=== PATIENT | male | born 1980 | race Caucasian/White ===

== ENCOUNTER → 2017-07-05 | Outpatient (CLI) | payer BC | END | disposition home or self-care (01) | LOC: CVU 07:11 | PROVIDERS: ATTEND Genetic Counselor, MS | DX: R07.89 Other chest pain (principal); I71.4 Abdominal aortic aneurysm, without rupture; I10 Essential (primary) hypertension; M54.9 Dorsalgia, unspecified; R05 Cough | CPT/HCPCS: 93978 ==

== ENCOUNTER 2018-02-06 20:57 | Emergency (ER) | payer OTHER ==
[~2018-02-06] VITALS: Ht 175.3 cm; Wt 140.0 kg
[2018-02-06 23:03] LABS: BASOPHILS # (AUTO) 0.02 x10^3/uL (0-0.1); BASOPHILS % (AUTO) 0 % (0-1); EOSINOPHILS # (AUTO) 0.15 x10^3/uL (0-0.4); EOSINOPHILS % (AUTO) 3 % (1-7); LYMPHOCYTES # (AUTO) 1.66 x10^3/uL (1-3.4); LYMPHOCYTES % (AUTO) 29 % (22-44); MD NO; MEAN CORPUSCULAR HGB CONC 33.6 g/dL (33.2-36.2); MEAN CORPUSCULAR VOLUME 89.3 fL (81-97); MEAN PLATELET VOLUME 7.1 fL (7.4-10.4); MONOCYTES # (AUTO) 0.49 x10^3/uL (0.2-0.8); MONOCYTES % (AUTO) 8 % (2-9); NEUTROPHILS % (AUTO) 60 % (42-75); PLATELET COUNT 243 x10^3/uL (130-400); RED BLOOD COUNT 5.34 x10^6/uL (4.38-5.82); RED CELL DISTRIBUTION WIDTH 13.9 % (9.4-14.8)
[2018-02-06 23:16] LABS: ALANINE AMINOTRANSFERASE 57 U/L (12-78); ALBUMIN 3.6 g/dL (3.4-5.0); ANION GAP 6 mmol/L (5-15); CALCIUM 9.1 mg/dL (8.5-10.1); CHLORIDE 105 mmol/L (98-107); CREATININE 1.33 mg/dL (0.7-1.3)
[2018-02-06 23:17] LABS: BILIRUBIN,TOTAL 0.8 mg/dL (0.2-1.0)
[2018-02-06 23:18] LABS: TOTAL PROTEIN 7.2 g/dL (6.4-8.2)
[2018-02-06 23:21] LABS: ALKALINE PHOSPHATASE 59 U/L (45-117); T4 (THYROXINE) 7.9 mcg/dL (4.5-12.1); TROPONIN I < 0.015 ng/mL (0.000-0.045)
[2018-02-07 01:55] VITALS: BP 120/70
== END 2018-02-07 01:57 | disposition home or self-care (01) ==
LOC: ED 23:59
DX: G89.29 Other chronic pain (principal); R53.1 Weakness; I10 Essential (primary) hypertension
CPT/HCPCS: 70450; 71045; 80053; 82962; 83735; 84436; 84443; 84484; 85025; 93005; 99285